=== PATIENT | female | born 1985 | race Caucasian/White ===

== ENCOUNTER 2019-10-22 12:28 | Emergency (ER) | payer BC, SELFPAY ==
--- NOTE | ~2019-10-22 | US_ITS ---
EXAMINATION: US OB <=14 wk fetus w TV DATE: 10/22/2019 14:43 INDICATION: Vaginal bleeding and cramping TECHNIQUE: Real-time pelvic ultrasound utilizing both a transvaginal and transabdominal probe was pe rformed. The interpreting radiologist was not present for the study. COMPARISON: None. FINDINGS: The intervertebral uterus measures 8.6 x 5.2 x 6.3 cm. A few anechoic nabothian cysts at the cervix. A 3 mm.. There is an intrauterine gestational sac with double decidua sign but without evident yolk s ac or pole. The mean sac diameter measures 12 mm, which correlates with an estimated gestationa l age of 5 weeks and 6 days. There are couple additional small anechoic cystic regions measuring up t o 3.5 mm maximal diameter along the posterior margin of the endometrial complex which could represent small subchorionic hematomas or focal adenomyosis. The right ovary measures 3.6 x 1.6 x 1.3 cm. The left ovary measures 3.5 x 1.5 x 1.8 cm. 1.8 x 1.6 x 1.5 cm thick-walled centrally hypoechoic corpus l uteum cyst in the left ovary. There is no free fluid in the pelvis. IMPRESSION: 1. Intrauterine gestational sac without discernible yolk sac or pole which could be due to fidelia y or failed . Correlate with serial beta-hCG levels. 2. Gestational age by ultrasound based upon mean sac diameter of 5 weeks 6 day(s) with ultrasound e stimated date of delivery (ANASTASIYA) of 06/17/20. 3. Couple tiny cystic spaces at the periphery of the endometrial complex which could represent small subchorionic hematoma, focal cystic adenomyosis or small vascular malformation. Reviewed, dictated and finalized at location A. IMPRESSION: 1. Intrauterine gestational sac without discernible yolk sac or pole whic h could be due to early or failed . Correlate with serial be ta-hCG levels. 2. Gestational age by ultrasound based upon mean sac diameter of 5 weeks 6 day (s) with ultrasound estimated date of delivery (ANASTASIYA) of 06/17/20. 3. Couple tiny cystic spaces at the periphery of the endometrial complex which could represent small subchorionic hematoma, focal cystic adenomyosis or small vascular malformation.
[2019-10-22 12:31] VITALS: BP 112/59; PULSE 72; RESP 16; TEMP 36.5; O2SAT 100
--- NOTE | 2019-10-22 12:47 | ED.GENADULT ---
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 Patient is also reporting a crampy type sensation in her lower pelvic area. Patient reports that she was seen in office by nurse practitioner [facility] and had a Pap smear done, had some light pink bleeding after that and that has continued to persist, with some dark red bleeding, and lower abdominal pain overnight into today. Patient reports history of LEEP procedure in 2015. No ultrasound in this at this point. Related Data Home Medications Medication Instructions Recorded Confirmed No Home Medications 10/22/19 10/22/19 Allergies Allergy/AdvReac Type Severity Reaction Status Date / Time No Known Allergies Allergy Verified 10/22/19 12:44 Review of Systems Review of Systems: Narrative: CONSTITUTIONAL: Denies fever, chills, or sweats. ENT: Denies rhinorrhea, congestion, sore throat, or otalgia. CARDIOVASCULAR: Denies chest pain, palpitations, or edema. RESPIRATORY: Denies cough or dyspnea. GASTROINTESTINAL: Denies abdominal pain, nausea, vomiting, or diarrhea. GENITOURINARY: Denies dysuria or hematuria. : Reports vaginal bleeding SKIN: Denies rash or itching. MUSCULOSKELETAL: Denies back pain, joint pain, or myalgia. NEUROLOGIC: Denies headache, numbness, or weakness. [facility] Past Medical History Medical History (Updated 10/22/19 @ 15:43 by Brittnee Ford MD) Irritable bowel syndrome Surgical History Surgical History (Updated 10/22/19 @ 12:54 by Brittnee Ford MD) H/O LEEP Family History Family History (Updated 07/06/17 @ 10:25 by DOCTOR UNKNOWN) Grandparent Family history of lung cancer Social History Social History Smoking status: Former smoker Smoking end date: 05/24/08 Alcohol intake: current Gender identity (if verbalized by the patient): Female Exam Narrative: Exam Narrative: GENERAL: Awake, alert, conversant HEAD: Normocephalic, atraumatic. EYES: PERRLA and EOMI. ENT: Nares clear, no rhinorrhea or epistaxis. Mucous membranes moist. NECK: Supple. CHEST: No respiratory distress, breathing even and non labored HEART: Regular rate, sinus rhythm ABDOMEN:Non distended, non tender : Labia majora and minora normal without lesions. Vagina with scant blood. No large blood clots. No cervical motion tenderness. No adnexal tenderness or fullness bilaterally. No discharge present. EXTREMITIES: Normal range of motion. No edema. SKIN: Warm, dry, no rash. NEURO:No focal deficits. Alert and oriented x3 Course Vital Signs Vital signs: Vital Signs Temperature 36.5 C 10/22/19 12:31 Pulse Rate 72 10/22/19 12:31 Respiratory Rate 16 10/22/19 12:31 Blood Pressure 112/59 L 10/22/19 12:31 Pulse Oximetry 100 10/22/19 12:31 Temperature 36.5 C 10/22/19 12:31 Pulse Rate 72 10/22/19 12:31 Respiratory Rate 16 10/22/19 12:31 Blood Pressure 112/59 L 10/22/19 12:31 Pulse Oximetry 100 10/22/19 12:31 Medical Decision Making MDM Narrative Medical decision making narrative: Patient presented for evaluation of vaginal bleeding in the setting of early . At the time of initial assessment, ABCs are intact and vital signs are stable. On physical exam, patient has very scant vaginal bleeding, no large clots or brisk bleeding. No parts identified. Laboratory results are unremarkable. No anemia. No electrolyte abnormality. No UTI. Patient with a lower beta hCG that would be expected at this stage of . Ultrasound does not correlate to last menstrual period, this may be
[2019-10-22 13:16] LABS: Basophils Absolute Auto 0.1 K/mm3 (0.0-0.1); Basophils Percent Auto 0.9 % (0.2-1.2); Eosinophils Absolute Auto 0.6 K/mm3 (0-0.3); Eosinophils Percent Auto 7.4 % (0-4.4); Hematocrit 34.9 % (37.0-47.0); Hemoglobin 11.6 g/dL (12.0-15.0); Immature Granulocyte Absolute 0.01 K/mm3 (0.00-0.031); Immature Granulocyte Percent A 0.1 % (0-0.5); Lymphocytes Absolute Auto 2.38 K/mm3 (0.9-3.2); Lymphocytes Percent Auto 32.2 % (18.3-44.2); Mean Corpuscular HGB Conc 33.2 g/dl (32-36); Mean Corpuscular Hemoglobin 31.5 pg (26-34); Mean Corpuscular Volume 94.8 fl (80-100); Mean Platelet Volume 9.8 fl (7.4-10.4); Monocytes Absolute Auto 0.5 K/mm3 (0.1-0.6); Monocytes Percent Auto 7.3 % (2.6-8.5); Neutrophils Absolute Auto 3.8 K/mm3 (1.3-6.7); Neutrophils Percent Auto 52.1 % (45.5-73.1); Platelet Count Result 236 k/mm3 (150-375); Red Blood Count 3.68 M/mm3 (4.2-5.4); Red Cell Distribution Width 12.7 % (11.5-14.5); White Blood Count 7.4 K/mm3 (4.5-10.0)
[2019-10-22 15:41] LABS: Add Urine Microscopic? YES; Appearance Urine Clear (Clear); Bilirubin Urine Negative (Negative); Blood Urine 1+ (Negative); Color Urine Straw (Yellow); Glucose Urine UA Negative (Negative); Ketones Urine Negative (Negative); Leukocyte Esterase Ur Negative LEU/UL (Negative); Mucus Urine Rare /lpf; Nitrate Urine Negative (Negative); Protein Urine Negative (Negative); RBC Urine 0-2 /hpf (0-2); Specific Grav Ur 1.009 (1.001-1.035); Urobilinogen Urine Negative mg/dL (<2.0); WBC Urine 0-3 /hpf
[2019-10-22 15:55] VITALS: BP 128/69; PULSE 68; RESP 16; TEMP 36.8; O2SAT 99
== END 2019-10-22 15:56 | disposition home or self-care (01) ==
PROVIDERS: Emergency Provider Emergency Medicine; PCP Family Medicine
DX: O20.9 Hemorrhage in early pregnancy, unspecified (principal); O99.611 Diseases of the digestive system complicating pregnancy, first trimester; K58.9 Irritable bowel syndrome, unspecified; Z87.891 Personal history of nicotine dependence; Z3A.01 Less than 8 weeks gestation of pregnancy
CPT/HCPCS: 36415; 76801; 76817; 81001; 81025; 84702; 85025; 85461; 99284

== ENCOUNTER 2019-10-23 15:57 | Outpatient (CLI) | payer BC, SELFPAY | END 2019-10-23 15:58 | disposition home or self-care (01) | PROVIDERS: PCP Family Medicine; Visit Provider Obstetrics & Gynecology | DX: O20.0 Threatened abortion (principal); Z3A.00 Weeks of gestation of pregnancy not specified | CPT/HCPCS: 36415; 84702 ==

== ENCOUNTER 2019-10-25 16:19 | Outpatient (CLI) | payer BC, SELFPAY ==
[2019-10-25 17:06] LABS: Beta HCG Quantitative 177.52 mIU/ML
== END 2019-10-25 16:20 | disposition home or self-care (01) ==
PROVIDERS: PCP Family Medicine; Visit Provider Obstetrics & Gynecology
DX: O20.0 Threatened abortion (principal); Z3A.00 Weeks of gestation of pregnancy not specified
CPT/HCPCS: 36415; 84702

== ENCOUNTER 2020-11-02 10:35 | Inpatient (IN) | payer BC, SELFPAY ==
[2020-11-02] VITALS (114 sets, daily range): BP systolic 81–113; BP diastolic 39–87; PULSE 54–95; RESP 16; TEMP 36.7–37.5; O2SAT 80–100; BMI 30.6
--- NOTE | 2020-11-02 11:29 | LDADM ---
This patient, Amina Martin, was admitted to Labor/Delivery/Recovery 104 on 11/02/20 at 10:35. Plans for labor, pain management and were discussed with patient. Patient/family oriented to hospital policies and general routines including ID bracelet, bed and alarms, visiting hours, pain management, procedures, bathroom and other care routines, personal items, smoking policy, room service/diet and guest tray routines, infant security routines, and visiting hours. Patient/Family are encouraged to report perceived risks to care and to ask questions if they do not understand what they are told or what they should do. See OBIX for further documentation.
[2020-11-02 11:39] LABS: Basophils Absolute Auto 0.1 K/mm3 (0.0-0.1); Basophils Percent Auto 0.4 % (0.2-1.2); Eosinophils Absolute Auto 0.1 K/mm3 (0-0.3); Eosinophils Percent Auto 0.8 % (0-4.4); Hematocrit 36.3 % (37.0-47.0); Hemoglobin 11.7 g/dL (12.0-15.0); Immature Granulocyte Absolute 0.08 K/mm3 (0.00-0.031); Immature Granulocyte Percent A 0.6 % (0-0.5); Lymphocytes Absolute Auto 2.04 K/mm3 (0.9-3.2); Lymphocytes Percent Auto 14.6 % (18.3-44.2); Mean Corpuscular HGB Conc 32.2 g/dl (32-36); Mean Corpuscular Hemoglobin 30.6 pg (26-34); Mean Platelet Volume 9.8 fl (7.4-10.4); Monocytes Absolute Auto 0.7 K/mm3 (0.1-0.6); Monocytes Percent Auto 5.2 % (2.6-8.5); Neutrophils Percent Auto 78.4 % (45.5-73.1); Platelet Count Result 226 k/mm3 (150-375); Red Blood Count 3.82 M/mm3 (4.2-5.4); Red Cell Distribution Width 13.5 % (11.5-14.5)
[2020-11-02] MEDS: LACTATED RINGERS 1,000 ML 125 ML IV CONT ×2 (11:39→12:28)
[2020-11-02] MEDS: OXYTOCIN 30 UNITS/NS 500 ML 30 UNITS/500 ML BAG IV CONT (12:30)
--- NOTE | 2020-11-02 12:58 | WPDANESEPP ---
Anes - Eval Pre Procedure Procedure: labor epidural Date/Time: 11/02/20 12:58 Surgeon: Ned Preop Diagnosis: pain during labor Pre Op Diagnosis: ROM Patient Data Age: 35 Gender: F Height: 5 ft 4 in Weight: 81 kg Last Vital Signs Temp 36.9 C 11/02/20 12:07 Pulse 79 11/02/20 12:48 BP 81/43 L 11/02/20 12:48 Pulse Ox 99 11/02/20 12:54 Allergies Allergy/AdvReac Type Severity Reaction Status Date / Time No Known Allergies Allergy Verified 10/15/20 13:35 Home Medications Medication Instructions Recorded Confirmed Type ferrous sulfate 27 mg PO DAILY 11/02/20 11/02/20 History prenat.vits,khang,cxa-nusm-qtvfs 1 tablet PO DAILY 11/02/20 11/02/20 History [ Vitamin] Laboratory Tests 11/02/20 11/02/20 11/02/20 11:24 11:24 11:24 WBC 14.0 K/mm3 H K/mm3 (4.5-10.0) RBC 3.82 M/mm3 L M/mm3 (4.2-5.4) Hgb 11.7 g/dL L g/dL (12.0-15.0) Hct 36.3 % L % (37.0-47.0) MCV 95.0 fl fl (80-100) MCH 30.6 pg pg (26-34) MCHC 32.2 g/dl g/dl (32-36) RDW 13.5 % % (11.5-14.5) Plt Count 226 k/mm3 k/mm3 (150-375) MPV 9.8 fl fl (7.4-10.4) Immature Gran % (Auto) 0.6 % H % (0-0.5) Neut % (Auto) 78.4 % H % (45.5-73.1) Lymph % (Auto) 14.6 % L % (18.3-44.2) Cook % (Auto) 5.2 % % (2.6-8.5) Eos % (Auto) 0.8 % % (0-4.4) Baso % (Auto) 0.4 % % (0.2-1.2) Lymph # (Auto) 2.04 K/mm3 K/mm3 (0.9-3.2) Cook # (Auto) 0.7 K/mm3 H K/mm3 (0.1-0.6) Eos # (Auto) 0.1 K/mm3 K/mm3 (0-0.3) Baso # (Auto) 0.1 K/mm3 K/mm3 (0.0-0.1) Abs Immat Gran (auto) 0.08 K/mm3 H K/mm3 (0.00-0.031) Absolute Neuts (auto) 11.0 K/mm3 H K/mm3 (1.3-6.7) Absolute Nucleated RBC 0.0 K/mm3 K/mm3 (0.0-0.012) Nucleated RBC % 0.0 % % (0.0-0.2) RPR Pending Blood Type A Positive Antibody Screen Negative : gestational age (ANASTASIYA 11/04/20) Patient hx anesthesia problems: none Family hx anesthesia problems: none PMFSH Past Medical History Medical History Irritable bowel syndrome Surgical History Surgical History H/O LEEP Family History Family History Grandparent Family history of lung cancer Diabetes mellitus Father High cholesterol Hypertension Social History Social History Smoking status: Former smoker Tobacco type: cigarettes Smoking end date: 11/02/18 Alcohol intake: current Substance use: former Other substance usage details: CANNABIS,CBD OIL Gender identity (if verbalized by the patient): Female Spiritual care concerns: No Exam Day of Procedure 11/02/20 12:58 Patient weight: obese Heart: regular rate and rhythm Lungs: clear to auscultation Neurological: alert and oriented
[2020-11-02 13:54] LABS: Amphetamine Screen Urine Negative (Negative); Barbiturate Screen Urine Negative (Negative); Benzodiazepines Screen Urine Negative (Negative); Cannabinoid Screen Urine Positive (Negative); Cocaine Screen Urine Negative (Negative); Methadone Screen Urine Negative (Negative); Opiate Screen Urine Negative (Negative); Phencyclidine Screen Urine Negative (Negative)
--- NOTE | 2020-11-02 16:59 | WPDOBADMIT ---
Obstetrics - Admit Note Admission Note: record reviewed. No pertinent additions to the history and/or any subsequent changes in the physical findings that are not consistent with the expected course of the were found. admit for SROM Additions to the history and/or subsequent changes in the physical findings follow. None.
--- NOTE | 2020-11-02 17:00 | PM.OBPRVD ---
OB - Delivery Note Procedure Delivery date: 11/02/20 Procedure: vaginal delivery Intrapartal events: None Induction method: none Delivery augmentation: pitocin Delivery monitor: external FHT and external uterine Route of delivery: Episiotomy description: None Laceration Description: None Specimen: No Quantitative Blood Loss (ml): 192 Anesthesia type: Epidural Disposition: floor [place] Baby Date of : 11/02/20 Time of : 16:49 Weeks of gestation at delivery: 39 gender: Female Weight (pounds): 7 Weight (ounces): 1 presentation: vertex position: Left Occiput Anterior Placenta delivery description: Spontaneous cord vessel description: 3 Vessels, Clamped/Cut and Delayed Cord Clamping score one minute: 9 score five minutes: 9 Narrative: mother and baby skin to skin in stable condition
[2020-11-02] MEDS: OXYTOCIN 30 UNITS/NS 500 ML 30 UNITS/500 ML BAG 125 UNITS IV CONT (17:44)
[2020-11-03 00:20] VITALS: BP 100/51; PULSE 66; RESP 16; TEMP 36.7
[2020-11-03 07:06] LABS: Hemoglobin 10.9 g/dL (12.0-15.0)
[2020-11-03] MEDS: MULTIVIT/MIN/PREN/FOL AC/IRON TABLET 1 TAB PO (07:22)
[2020-11-03 07:31] VITALS: BP 103/63; PULSE 55; RESP 16; TEMP 36.7; O2SAT 97
--- NOTE | 2020-11-03 08:36 | PC.NURSE ---
Patient was given the opportunity to view the discharge video Mother & Baby Care, The First Two Weeks and to ask questions. Patient declined viewing the video and has been given the mother/baby guide for home reference.
--- NOTE | 2020-11-03 10:14 | WPDANLDPN2 ---
Anes-Prog Note L&D Date/Time: 11/03/20 10:14 Comfortable throughout: labor and delivery Neuraxial method: epidural Epidural/Spinal procedure site: clean & non-tender Neuro status: Neuro function grossly intact. Cardiovascular status: normal Respiratory status: normal Airway patency: baseline Mental status: baseline Post-Op hydration status: normal Vital Signs: Last Vital Signs Temp 36.7 C 11/03/20 07:31 Pulse 55 L 11/03/20 07:31 Resp 16 11/03/20 07:31 BP 103/63 11/03/20 07:31 Pulse Ox 97 11/03/20 07:31 Pain score (VAS): 0 I/O: Intake & Output 11/02/20 11/03/20 11/03/20 23:59 07:59 15:59 Intake Total 500 240 Balance 500 240 Post-procedural complaints: none Patient feedback: Patient satisfied with anesthetic care.
--- NOTE | 2020-11-03 10:27 | P.PNOB_ITS ---
OB - PN: Subj Subjective Date/time seen: 11/03/20 10:27 Patient comments: no complaints baby status: doing well OB - PN: Obj Data Labs CBC & Chem 7: 11/03/20 07:00 Labs: Laboratory Results - last 24 hr 11/02/20 11/02/20 11/02/20 11:24 11:24 13:01 WBC 14.0 H RBC 3.82 L Hgb 11.7 L Hct 36.3 L MCV 95.0 MCH 30.6 MCHC 32.2 RDW 13.5 Plt Count 226 MPV 9.8 Immature Gran % (Auto) 0.6 H Neut % (Auto) 78.4 H Lymph % (Auto) 14.6 L [place] % (Auto) 5.2 Eos % (Auto) 0.8 Baso % (Auto) 0.4 Lymph # (Auto) 2.04 [place] # (Auto) 0.7 H Eos # (Auto) 0.1 Baso # (Auto) 0.1 Abs Immat Gran (auto) 0.08 H Absolute Neuts (auto) 11.0 H Absolute Nucleated RBC 0.0 Nucleated RBC % 0.0 Urine Opiates Screen Negative Urine Methadone Screen Negative Ur Barbiturates Screen Negative Ur Phencyclidine Scrn Negative Ur Amphetamine Screen Negative U Benzodiazepines Scrn Negative Urine Cocaine Screen Negative U Cannabinoids Screen Positive A Blood Type A Positive Antibody Screen Negative 11/03/20 07:00 WBC RBC Hgb 10.9 L Hct 33.0 L MCV MCH MCHC RDW Plt Count MPV Immature Gran % (Auto) Neut % (Auto) Lymph % (Auto) [place] % (Auto) Eos % (Auto) Baso % (Auto) Lymph # (Auto) [place] # (Auto) Eos # (Auto) Baso # (Auto) Abs Immat Gran (auto) Absolute Neuts (auto) Absolute Nucleated RBC Nucleated RBC % Urine Opiates Screen Urine Methadone Screen Ur Barbiturates Screen Ur Phencyclidine Scrn Ur Amphetamine Screen U Benzodiazepines Scrn Urine Cocaine Screen U Cannabinoids Screen Blood Type Antibody Screen OB - PN A/P Plan day: 1 Plan: routine care and discharge home Time Spent With Patient Time: Total time spent is greater than 50% in coordination of care (as documented) at patient's floor/unit and/or counseling patient: Review of Systems Review of Systems: All systems reviewed & are unremarkable except as noted in HPI and below Exam Const: General: cooperative Orientation/consciousness: patient oriented x3 Psych: Thought process: Normal thought process present Thought content: Yes Normal thought content present Insight: Good insight present (Psych) Judgement: Good judgement present (Psych)
--- NOTE | 2020-11-03 10:30 | PM.OBDSVD ---
DS: Admitting Diagnosis Admitting Diagnosis Admitting Diagnosis: SROM OB - DS: Summary OB Procedures : None OB Procedures Intrapartum: Spontaneous Vag Delivery OB Procedures: : None Time Spent with Patient Time attestation: Total time spent providing and/or coordinating discharge services: DS: Data Data Completed and Pending Labs on day of discharge: Labs from last 24 hours 11/03/20 11/02/20 11/02/20 07:00 13:01 11:24 WBC RBC Hgb 10.9 L Hct 33.0 L MCV MCH MCHC RDW Plt Count MPV Immature Gran % (Auto) Neut % (Auto) Lymph % (Auto) [place] % (Auto) Eos % (Auto) Baso % (Auto) Lymph # (Auto) [place] # (Auto) Eos # (Auto) Baso # (Auto) Abs Immat Gran (auto) Absolute Neuts (auto) Absolute Nucleated RBC Nucleated RBC % Urine Opiates Screen Negative Urine Methadone Screen Negative Ur Barbiturates Screen Negative Ur Phencyclidine Scrn Negative Ur Amphetamine Screen Negative U Benzodiazepines Scrn Negative Urine Cocaine Screen Negative U Cannabinoids Screen Positive A RPR Blood Type A Positive Antibody Screen Negative 11/02/20 11/02/20 11:24 11:24 WBC 14.0 H RBC 3.82 L Hgb 11.7 L Hct 36.3 L MCV 95.0 MCH 30.6 MCHC 32.2 RDW 13.5 Plt Count 226 MPV 9.8 Immature Gran % (Auto) 0.6 H Neut % (Auto) 78.4 H Lymph % (Auto) 14.6 L [place] % (Auto) 5.2 Eos % (Auto) 0.8 Baso % (Auto) 0.4 Lymph # (Auto) 2.04 [place] # (Auto) 0.7 H Eos # (Auto) 0.1 Baso # (Auto) 0.1 Abs Immat Gran (auto) 0.08 H Absolute Neuts (auto) 11.0 H Absolute Nucleated RBC 0.0 Nucleated RBC % 0.0 Urine Opiates Screen Urine Methadone Screen Ur Barbiturates Screen Ur Phencyclidine Scrn Ur Amphetamine Screen U Benzodiazepines Scrn Urine Cocaine Screen U Cannabinoids Screen RPR Pending Blood Type Antibody Screen Discharge Plan Discharge Attending physician on discharge: Anne Marino Discharging Clinician: Rajni Mason Patient Disposition: Home, Self-Care Activity: pelvic rest Diet: regular Patient Instructions: Antibiotic Form Stand Alone Forms: General Discharge Information Follow-up/Referrals: Rajni Mason CNM [Certified Nurse Reactor Service Operator] - 4 Weeks Discharge Medications: Continued Vitamin Tablet 1 tablet PO DAILY RF: 0 ferrous sulfate 27 mg iron Tablet 27 mg PO DAILY RF: 0 Date of admission: 11/02/20 10:35 Primary Care Provider: Marya,Jason Stark Admitting Provider: Anne Marino Attending physician on admission: Anne Marino Condition: Stable
--- NOTE | 2020-11-03 10:59 | PCCCNOTE ---
Addendum entered by JOYCE Zabala 11/03/20 14:27: 1425: Received an email from [facility] that states: Your information has been reviewed and assessed by a Social Secretary. The information you provided met the criteria for a Child Welfare Referral to offer services/provide support to the involved family. Your final intake ID number for this report is [id number]. Original Note: Care Coordination: Pt. tested positive for THC on her urine drug screen. Pt. reports she uses it for her anxiety and depression. Baby's urine drug screen was negative. Baby's meconium is pending 11/03. Pt. reports living at home with NATASHA Hernandez and three other children. Pt. reports she has support from hers and David's family. Pt. reports they have everything needed for baby and not lacking any supplies. Pt. reports she has tried to get signed up with W[employer] and [employer] but pt. is overly resourced and does not qualify. Pt. reports she has had prior [facility] involvement in 2009 regarding her son who is now 11 years old. resources provided to pt. [facility] Online Report #[id number]. Updates given to CRISTIANO Rouse.
[2020-11-03 11:45] VITALS: BP 103/61; PULSE 57; RESP 16; TEMP 36.7; O2SAT 96
[2020-11-03 16:00] VITALS: BP 103/61; PULSE 57; RESP 16; TEMP 36.7; O2SAT 96
[2020-11-03] MEDS: TETANUS,DIPHTHERIA,AC PERTUSSIS ADULT (0.5 ML) BOOSTRIX IM (16:18)
[2020-11-04 09:17] LABS: Rapid Plasma Reagin Non-Reactive (NonReactive)
[2020-11-06 10:02] VITALS: BP 112/71; PULSE 55; RESP 16; TEMP 36.8; O2SAT 98
== END 2020-11-03 18:15 | disposition home or self-care (01) | DRG 807 ==
LOC: ANHLDR 11:18 → ANHOB2 19:15
PROVIDERS: Advanced Practice Midwife; Admitting Provider Obstetrics & Gynecology; PCP Family Medicine; Visit Provider Obstetrics & Gynecology
DX: O76 Abnormality in fetal heart rate and rhythm complicating labor and delivery (principal); Z37.0 Single live birth; Z3A.39 39 weeks gestation of pregnancy
CPT/HCPCS: 36415; 80307; 85014; 85018; 85025; 86592; 86850; 86900; 86901; 90715; A9270; J2590; J2795; J7120